=== PATIENT | male | born 1935 ===

== ENCOUNTER 2017-06-06 13:31 | Emergency (ER) | payer MEDICARE, MEDICAID ==
[2017-06-06 13:31] VITALS: BMI 26.5
[2017-06-06 13:46] VITALS: BP 126/73; PULSE 86; RESP 20; TEMP 98.8; O2SAT 97
--- NOTE | 2017-06-06 14:22 | ED PDOC ---
HPI: Chest Pain Time Seen by Provider: 06/06/17 13:46 Chief Complaint (Nursing): Chest Pain Chief Complaint (Provider): Productive cough History Per: Patient History/Exam Limitations: no limitations Onset/Duration Of Symptoms: Days (3) Additional Complaint(s): Patient is an 82 y/o male with no significant past medical history presenting to the emergency department for a productive cough with thick sputum ongoing for three days with associated pleuritic chest pain. Denies fever, shortness of breath, or other complaints. Of note, patient recently had a normal nuclear stress test done. PCP: Dr. Eric Desir Past Medical History Reviewed: Historical Data, Nursing Documentation, Vital Signs Vital Signs: Last Vital Signs Temp 98.8 F 06/06/17 13:43 Pulse 86 06/06/17 13:43 Resp 20 06/06/17 13:43 BP 126/73 06/06/17 13:43 Pulse Ox 97 06/06/17 14:27 - Medical History PMH: Asthma, COPD Denies: Chronic Kidney Disease - Surgical History Surgical History: Cholecystectomy - Family History Family History: States: CAD - Home Medications Home Medications: Ambulatory Orders Medication Instructions Recorded Albuterol/Ipratropium [Duoneb 3 3 ml IH Q6 PRN 09/11/15 mg/0.5 mg (3 ml) UD] Fluticasone/Salmeterol 100/50 1 puff PO BID 09/11/15 [Advair Diskus 100/50] Moxifloxacin HCl [Avelox] 400 mg PO DAILY #10 tablet 09/13/15 Oseltamivir [Tamiflu Cap] 75 mg PO BID@0100,1300 #0 cap 09/13/15 Albuterol HFA [Ventolin HFA 90 2 puff IH Q4H #1 puff 06/06/17 mcg/actuation (8 g)] Azithromycin [Zithromax] 250 mg PO DAILY #6 tab 06/06/17 - Allergies Allergies/Adverse Reactions: Allergies Allergy/AdvReac Type Severity Reaction Status Date / Time No Known Allergies Allergy Verified 09/11/15 08:28 Review of Systems ROS Statement: Except As Marked, All Systems Reviewed And Found Negative Constitutional: Negative for: Fever Respiratory: Positive for: Cough, Pleuritic Pain, Sputum (thick). Negative for : Shortness of Breath Physical Exam - Reviewed Nursing Documentation Reviewed: Yes Vital Signs Reviewed: Yes - Physical Exam Appears: Positive for: Well, Non-toxic, No Acute Distress Head Exam: Positive for: ATRAUMATIC, NORMAL INSPECTION, NORMOCEPHALIC Skin: Positive for: Normal Color, Warm, Dry Eye Exam: Positive for: Normal appearance Neck: Positive for: Normal Cardiovascular/Chest: Positive for: Regular Rate, Rhythm. Negative for: Murmur Respiratory: Positive for: Rhonchi (scattered). Negative for: Wheezing, Respiratory Distress Gastrointestinal/Abdominal: Positive for: Normal Exam, Soft. Negative for: Tenderness Extremity: Positive for: Normal ROM. Negative for: Pedal Edema Neurologic/Psych: Positive for: Alert, Oriented (x3) - ECG O2 Sat by Pulse Oximetry: 97 (RA) Pulse Ox Interpretation: Normal Medical Decision Making Medical Decision Making: Initial Impression: Productive Cough Initial Plan: Chest X-ray Influenza test Reevaluation Scribe Attestation: Documented by Pauline Mathur acting as a scribe for Saw Estes MD. Provider Scribe Attestation: All medical record entries made by the Scribe were at my direction and personally dictated by me. I have reviewed the chart and agree that the record accurately reflects my personal performance of the history, physical exam, medical decision making, and the department course for this patient. I have also personally directed, reviewed, and agree with the discharge instructions and disposition. Disposition - Clinical Impression Clinical Impression: Bronchitis - Patient ED Disposition Is Patient to be Admitted: No Counseled Patient/Family Regarding: Studies Performed, Diagnosis, Need For Followup, Rx Given - Disposition Referrals: [facility] [Outside] Disposition: Routine/Home Disposition Time: 15:22 Condition: FAIR Prescriptions: Albuterol HFA [Ventolin HFA 90 mcg/actuation (8 g)] 2 puff IH Q4H #1 puff Azithromycin [Zithromax] 250 mg PO DAILY #6 tab Instructions: Acute Bronchitis (ED) Forms: [facility] (Armenian) Print Language: TANZANIAN
--- NOTE | 2017-06-06 15:08 | RAD ---
HISTORY: cough COMPARISON: Comparison is made to 03/03/2017 TECHNIQUE: Chest PA and lateral FINDINGS: LUNGS: There are linear opacity at the left lower lobe likely associated with bronchiectasis again noted. No evidence of new infiltrate or consolidation in the lungs. PLEURA: No significant pleural effusion identified. No pneumothorax apparent. CARDIOVASCULAR: Normal. OSSEOUS STRUCTURES: No significant abnormalities. VISUALIZED UPPER ABDOMEN: Normal. OTHER FINDINGS: None. IMPRESSION: Re- demonstration of linear opacity associated with bronchiectasis at the left lower lobe. No evidence of new infiltrate or consolidation in the lungs.
--- NOTE | 2017-06-07 12:52 | CARD ---
APPROVED REPORT EKG Measurement Heart [id number] <Conclusion> Normal sinus rhythm Inferior infarct, age undetermined Abnormal ECG
== END 2017-06-06 15:38 | disposition home or self-care (01) ==
LOC: H.ER 13:31
DX: J44.9 Chronic obstructive pulmonary disease, unspecified (principal)